=== PATIENT | female | born 1995 | race African-American/Black ===

== ENCOUNTER 2020-10-11 10:28 | Emergency (ER) | payer MEDICAID ==
[~2020-10-11] VITALS: Ht 172.7 cm; Wt 50.0 kg
[2020-10-11 11:02] LABS: HEMATOCRIT. 42.9 % (36.0-48.0); HEMOGLOBIN. 14.9 g/dL (12.0-16.0); MEAN CORPUSCULAR HEMOGLOBIN 31.7 pg (28.0-32.0); MEAN CORPUSCULAR VOLUME 90.8 fL (81.0-99.0); MEAN PLATELET VOLUME 8.3 fl (7.4-10.4); PLATELET 253 x1000/uL (130-400); RED BLOOD CELL COUNT 4.72 mill/uL (4.2-5.4); RED CELL DISTRIBUTION WIDTH 13.2 % (11.6-14.6)
[2020-10-11 11:12] LABS: INR 1.1; PROTHROMBIN TIME 11.9 sec (9.6-11.0)
[2020-10-11 11:13] LABS: CHLORIDE 103 mEq/L (98-107)
[2020-10-11] MEDS ORDERED: ONDANSETRON HCL 4MG/2ML INJ IV ONE (11:30)
[2020-10-11] MEDS ORDERED: MORPHINE SULFATE 4 MG/ML CPJ (NOT FOR IM USE) IV ONE (11:30)
[2020-10-11] MEDS ORDERED: FAMOTIDINE 20MG/2ML VIAL IV ONE (11:30)
[2020-10-11 11:49] LABS: PLATELET ESTIMATE NORMAL
[2020-10-11 12:28] LABS: CLARITY URINE CLEAR (CLEAR); COLOR URINE ORANGE (YELLOW); KETONES URINE TRACE (NEGATIVE); LEUKOCYTE ESTERASE URINE TRACE (NEGATIVE); NITRITE URINE NEGATIVE (NEGATIVE); OCCULT BLOOD URINE 3+ (NEGATIVE); PH URINE 5.5 (4.5-8.0); PROTEIN URINE 1+ (NEGATIVE); SPECIFIC GRAVITY URINE 1.038 (1.005-1.030)
[2020-10-11] MEDS ORDERED: IOHEXOL-300 100 ML BOTTLE ONE (13:38)
[2020-10-11] MEDS ORDERED: KETOROLAC 30MG/ML VIAL IV NR (14:15)
[2020-10-11] MEDS ORDERED: LEVO250T58 MT (14:15)
[2020-10-11] MEDS ORDERED: IBUP-2029 MT (14:16)
[2020-10-11 14:18] VITALS: BP 112/70
== END 2020-10-11 15:02 | disposition home or self-care (01) ==
LOC: ER 10:41
DX: N30.90 Cystitis, unspecified without hematuria (principal)
CPT/HCPCS: 36415; 74177; 80053; 81003; 81025; 83690; 85025; 85610; 96374; 96375; 99285; J1885; J2270; J2405; J3490; Q9967; Z7610